=== PATIENT | female | born 1940 | race Caucasian/White ===

== ENCOUNTER → 2022-12-23 | Outpatient (REF) | payer MEDICARE ==
[2022-12-23 19:14] LABS: CREATININE, URINE 43.3 MG/DL
[2022-12-23 19:15] LABS: MAU/CREAT RATIO 9.2 MCG/MG (0.0-30.0)
== END ==
LOC: M LAB REF 17:31
PROVIDERS: ATTEND Nurse Practitioner Family
DX: E10.9 Type 1 diabetes mellitus without complications (principal)